=== PATIENT | male | born 1990 | race Caucasian/White ===

== ENCOUNTER 2017-01-23 04:16 | Inpatient (IN) | payer OTHER ==
[2017-01-23 04:32] VITALS: BMI 24.3
[2017-01-23] MEDS ORDERED: Sodium Chloride 0.9% 1,000 ML IV ONE ×3 (04:39→05:26)
[2017-01-23 04:46] LABS: BASO % 0.6 % (0.0-2.0); EOS # 0.3 K/uL (0.0-0.7); EOS % 5.4 % (0.0-4.0); LYMPH # 0.9 K/uL (1.0-4.3); LYMPH % 15.1 % (20.0-40.0); MEAN CELL VOLUME 84.8 fL (80.0-94.0); MEAN CORPUSCULAR HEMOGLOBIN 28.1 pg (27.0-31.0); MEAN CORPUSCULAR HGB CONC 33.2 g/dL (33.0-37.0); MEAN PLATELET VOLUME 11.8 fL (7.2-11.7); MONO # 0.7 K/uL (0.0-0.8); MONO % 10.7 % (0.0-10.0); RED CELL DISTRIBUTION WIDTH 24.9 % (11.5-14.5); WHITE BLOOD COUNT 6.1 K/uL (4.8-10.8)
[2017-01-23 04:50] LABS: INR 2.3
[2017-01-23] MEDS ORDERED: Sodium Chloride 0.9% 1,000 ML ONE (04:55)
[2017-01-23 04:57] LABS: CHLORIDE 97 mmol/L (98-107); SODIUM 127 mmol/L (132-148)
[2017-01-23 04:58] LABS: POTASSIUM 4.5 mmol/L (3.6-5.2)
[2017-01-23 04:59] LABS: GFR AFRICAN-AMERICAN > 60
[2017-01-23 05:00] LABS: ALB/GLOB RATIO 0.5 (1.0-2.1); ALKALINE PHOSPHATASE 180 U/L (38-126); ALT/SGPT 130 U/L (21-72); AST/SGOT 166 U/L (17-59); BILIRUBIN,TOTAL 9.5 mg/dL (0.2-1.3); BLOOD UREA NITROGEN 21 mg/dL (9-20); CALCIUM 6.8 mg/dl (8.6-10.4); CARBON DIOXIDE 22 mmol/L (22-30); GLUCOSE,RANDOM 97 mg/dL (75-110); TOTAL PROTEIN 5.3 g/dL (6.3-8.3)
[2017-01-23] MEDS ORDERED: Phytonadione 10 mg/ml Inj (Adult) IM STA (05:20)
--- NOTE | 2017-01-23 05:21 | C.PDOC ---
History Of Present Illness 26 year old male with a history of liver issues presents to the ED with complaints of vomiting blood beginning during the night. Patient is a candidate awaiting liver transplant. He denies fever, diarrhea, or other complaints at this time. Chief Complaint (Nursing): GI Problem History Per: Patient, Family History/Exam Limitations: no limitations Onset/Duration Of Symptoms: Hrs Current Symptoms Are (Timing): Still Present Associated Symptoms: Vomiting (vomiting blood ) Exacerbating Factors: None Alleviating Factors: None Recent travel outside of the [place]: No Past Medical History Reviewed: Historical Data, Nursing Documentation, Vital Signs Vital Signs: Last Vital Signs Temp 98.1 F 01/23/17 06:01 Pulse 93 H 01/23/17 06:01 Resp 16 01/23/17 06:01 BP 93/48 L 01/23/17 06:01 Pulse Ox 100 01/23/17 06:03 Family History: States: Unknown Family Hx - Social History Hx Alcohol Use: No Hx Substance Use: No Review Of Systems Constitutional: Negative for: Fever, Chills Gastrointestinal: Positive for: Nausea, Vomiting, Hematemesis. Negative for: Diarrhea Physical Exam - Physical Exam Appears: Non-toxic, In Acute Distress Skin: Warm, Dry, Jaundice Head: Atraumatic, Normacephalic Eye(s): bilateral: Conjunctiva Pale Oral Mucosa: Moist Neck: Supple Chest: Symmetrical, No Deformity Cardiovascular: No Murmur, Other (Patient is tachycardic ) Respiratory: Normal Breath Sounds, No Rales, No Rhonchi, No Wheezing Gastrointestinal/Abdominal: Soft, No Tenderness, No Distention, No Guarding, No Rebound, Other (Large liver palpable on exam ) Extremity: Normal ROM, No Tenderness Neurological/Psych: Oriented x3 ED Course And Treatment - Laboratory Results Result Diagrams: 01/23/17 04:42 01/23/17 04:42 ECG: Interpreted By Me, Viewed By Me ECG Rhythm: Sinus Rhythm ECG Interpretation: No Acute Changes, Abnormal Interpretation Of ECG: NSR, prolonged QT interval Rate From EC O2 Sat by Pulse Oximetry: 100 (room air ) Pulse Ox Interpretation: Normal - Radiology CXR: Interpreted by Me, Viewed By Me CXR Interpretation: Yes: No Acute Disease. No: Infiltrates, Cardiomegaly, Pnemothorax Progress Note: EKG, CXR, ad labs were ordered. Patient was given Vitamin K, Octreotide, and IV fluids. Medical Decision Making Medical Decision Making: NG tube was inserted by Dr. Barnhart, showing active bleeding. Patient vomited blood clot while in ER. Disposition Discussed With : Darek Morin Doctor Will See Patient In The: Hospital Counseled Patient/Family Regarding: Diagnosis - Disposition Disposition: HOSPITALIZED Disposition Time: 06:03 Condition: GUARDED - Clinical Impression Clinical Impression: Gastrointestinal hemorrhage, Esophageal varices, Hepatic dysfunction - Scribe Statement The provider has reviewed the documentation as recorded by the Scribdread Russell All medical record entries made by the Liliaibdread were at my direction and personally dictated by me. I have reviewed the chart and agree that the record accurately reflects my personal performance of the history, physical exam, medical decision making, and the department course for this patient. I have also personally directed, reviewed, and agree with the discharge instructions and disposition.
[2017-01-23] MEDS ORDERED: Phytonadione 10 mg/ml Inj (Adult) ONE (05:37)
--- NOTE | 2017-01-23 05:50 | CP.PCM.CON ---
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 Denied pain /fever/. sob/ cough. Pt is anemic and awaiting transfusion of PRBC in ED. ROS- as noted All- NKDA Social- no tob/ etoh/ drugs Meds-Reviewed FH- Unknown PE T-97.8 P-90 R-18 BP- 95/64 Skin-Jaundice Neck- no jvd Lungs- bilat bs Heart-rr aBd- bs+, soft, + spleenomegally, nontender Ext- nontender Neuro- nonfocal Labs-reviewed A&P UGI Bleed/ r/o varices Acute Blood Loss Anemia PSC Hyponatremia Admit to ICU f/u cbc post PRBC GI eval /EGD Octreotide /PPI Transfuse FFP / f/u PT,PTT maintain optimal lytes Past Patient History - Infectious Disease Hx of Infectious Diseases: None - Past Social History Smoking Status: Never Smoked - HEMATOLOGICAL/ONCOLOGICAL Hx Cirrhosis: Yes - GASTROINTESTINAL Other/Comment: primary sclerosing cholangitis - PSYCHIATRIC Hx Substance Use: No - SURGICAL HISTORY 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) Meds Allergies/Adverse Reactions: Allergies Allergy/AdvReac Type Severity Reaction Status Date / Time No Known Allergies Allergy Verified 01/23/17 04:34 - Medications Medications: Current Medications Octreotide Acetate 50 mcg/ (Sodium Chloride) 51 mls @ 102 mls/hr IVPB Q8 JULIA Sodium Chloride (Sodium Chloride 0.9%) 1,000 mls @ 1,000 mls/hr IV .Q1H ONE Stop: 01/23/17 06:07 Last Admin: 01/23/17 05:11 Dose: 1,000 mls/hr Sodium Chloride (Sodium Chloride 0.9%) 1,000 mls @ 1,000 mls/hr IV .Q1H ONE Stop: 01/23/17 06:25 Results - Vital Signs Recent Vital Signs: Last Vital Signs Temp 97.8 F 01/23/17 04:26 Pulse 105 H 01/23/17 04:46 Resp 14 01/23/17 04:46 BP 95/64 L 01/23/17 04:46 Pulse Ox 100 01/23/17 05:38 - Labs Result Diagrams: 01/23/17 04:42 01/23/17 04:42 Labs: Laboratory Results - last 24 hr 01/23/17 01/23/17 01/23/17 04:42 04:42 04:42 WBC 6.1 RBC 2.95 L Hgb 8.3 L Hct 25.0 L MCV 84.8 MCH 28.1 MCHC 33.2 RDW 24.9 H Plt Count 70 L MPV 11.8 H Neut % (Auto) 68.2 Lymph % (Auto) 15.1 L [place] % (Auto) 10.7 H Eos % (Auto) 5.4 H Baso % (Auto) 0.6 Neut # 4.1 Lymph # 0.9 L [place] # 0.7 Eos # 0.3 Baso # 0.0 PT 26.1 H INR 2.3 APTT 39 H Sodium 127 L Potassium 4.5 Chloride 97 L Carbon Dioxide 22 Anion Gap 13 BUN 21 H Creatinine 0.5 L Est GFR ( Amer) > 60 Est GFR (Non-Af Amer) > 60 Random Glucose 97 Calcium 6.8 L Total Bilirubin 9.5 H AST 166 H ALT 130 H Alkaline Phosphatase 180 H Ammonia Total Protein 5.3 L Albumin 1.7 L Globulin 3.6 Albumin/Globulin Ratio 0.5 L Lipase 53 Blood Type Antibody Screen 01/23/17 01/23/17 04:45 04:59 WBC RBC Hgb Hct MCV MCH MCHC RDW Plt Count MPV Neut % (Auto) Lymph % (Auto) [place] % (Auto) Eos % (Auto) Baso % (Auto) Neut # Lymph # [place] # Eos # Baso # PT INR APTT Sodium Potassium Chloride Carbon Dioxide Anion Gap BUN Creatinine Est GFR ( Amer) Est GFR (Non-Af Amer) Random Glucose Calcium Total Bilirubin AST ALT Alkaline Phosphatase Ammonia 64 H Total Protein Albumin Globulin Albumin/Globulin Ratio Lipase Blood Type O POSITIVE Antibody Screen Negative
[2017-01-23] MEDS ORDERED: Pantoprazole 80 MG in Sodium Chloride 0.9% 100 ML IVP SCH (06:30)
--- NOTE | 2017-01-23 06:35 | CP.PCM.CON ---
<Estuardo Maldonado - Last Filed: 01/23/17 08:56> History of Present Illness - History of Present Illness History of Present Illness: PGY4 Initial GI Consult Anastacio Huang is a 26M w/ hx of PSC and on the Liver transplant List at [facility] who presented to ER with complaints of hematemesis. Pt states that he awoke from sleep with nausea. He proceeded to have x1 episode of hematemesis. He decribed the emesis being mixed with bright red blood and clots. Pt states states that he then proceeded to the ER for further eval. He denies any abd pain. Pt states that this is his first episode of hematemsis. Her denies any BRBPR or melena. Denies any previous episodes of gastritis or ulcers. He states that he was diagnosed with PSC a few years ago and was originally being followed at [facility] but transferred care to [facility]. He states that he has had an EGD 2-3 years prior and cannot recall if he had any varicies. He notes that around the same time, he also had a Biliary stent placed at the time. Upon arrival in the ER, he had an NG tube placed with suction. In total, he had around 125cc outpt since admission. Pt remained hemodynamically stable in the ER. He received a bolus of octreotide and 1 unit of PRBC. He has been evaluated for for the ICU. PMHx: PSC PSHx: Biliary stent placement Family Hx: Denies any colon ca Endoscopy hx: EGD and ERCP 2-3 years ago at [facility]? 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) Meds Allergies/Adverse Reactions: Allergies Allergy/AdvReac Type Severity Reaction Status Date / Time No Known Allergies Allergy Verified 01/23/17 04:34 - Medications Medications: Current Medications Pantoprazole Sodium 80 mg/ (Sodium Chloride) 100 mls @ 10 mls/hr IVP .Q10H JULIA PRN Reason: 8 MG/HR Physical Exam - Constitutional Appears: Well, No Acute Distress, Agitated - Head Exam Head Exam: ATRAUMATIC, NORMOCEPHALIC - Eye Exam Eye Exam: Scleral icterus - ENT Exam ENT Exam: Mucous Membranes Moist, Normal Exam - Respiratory Exam Respiratory Exam: Clear to Auscultation Bilateral, NORMAL BREATHING PATTERN. absent: Rales, Rhonchi, Wheezes, Respiratory Distress - Cardiovascular Exam Cardiovascular Exam: REGULAR RHYTHM, +S1, +S2 - GI/Abdominal Exam GI & Abdominal Exam: Normal Bowel Sounds, Soft. absent: Firm, Guarding, Hernia , Rebound, Rigid, Tenderness - Neurological Exam Neurological exam: Alert, Oriented x3 - Psychiatric Exam Psychiatric exam: Normal Affect, Normal Mood - Skin Skin Exam: Dry, Intact, Warm Additional comments: juandiced Results - Vital Signs Recent Vital Signs: Last Vital Signs Temp 98.1 F 01/23/17 06:01 Pulse 93 H 01/23/17 06:01 Resp 16 01/23/17 06:01 BP 93/48 L 01/23/17 06:01 Pulse Ox 100 01/23/17 06:12 - Labs Result Diagrams: 01/23/17 04:42 01/23/17 04:42 Labs: Laboratory Results - last 24 hr 01/23/17 01/23/17 01/23/17 04:42 04:42 04:42 WBC 6.1 RBC 2.95 L Hgb 8.3 L Hct 25.0 L MCV 84.8 MCH 28.1 MCHC 33.2 RDW 24.9 H Plt Count 70 L MPV 11.8 H Neut % (Auto) 68.2 Lymph % (Auto) 15.1 L [place] % (Auto) 10.7 H Eos % (Auto) 5.4 H Baso % (Auto) 0.6 Neut # 4.1 Lymph # 0.9 L [place] # 0.7 Eos # 0.3 Baso # 0.0 Differential Comment PT 26.1 H INR 2.3 APTT 39 H Sodium 127 L Potassium 4.5 Chloride 97 L Carbon Dioxide 22 Anion Gap 13 BUN 21 H Creatinine 0.5 L Est GFR ( Amer) > 60 Est GFR (Non-Af Amer) > 60 Random Glucose 97 Calcium 6.8 L Total Bilirubin 9.5 H AST 166 H ALT 130 H Alkaline Phosphatase 180 H Ammonia Total Protein 5.3 L Albumin 1.7 L Globulin 3.6 Albumin/Globulin Ratio 0.5 L Lipase 53 Blood Type Antibody Screen 01/23/17 01/23/17 04:45 04:59 WBC RBC Hgb Hct MCV MCH MCHC RDW Plt Count MPV Neut % (Auto) Lymph % (Auto) [place] % (Auto) Eos % (Auto) Baso % (Auto) Neut # Lymph # [place] # Eos # Baso # Differential Comment PT INR APTT Sodium Potassium Chloride Carbon Dioxide Anion Gap BUN Creatinine Est GFR ( Amer) Est GFR (Non-Af Amer) Random Glucose Calcium Total Bilirubin AST ALT Alkaline Phosphatase Ammonia 64 H Total Protein Albumin Globulin Albumin/Globulin Ratio Lipase Blood Type O POSITIVE Antibody Screen Negative Assessment & Plan - Assessment and Plan (Free Text) Assessment: Anastacio Huang is a 26M w/ hx of PSC who presents with upper GI bleed. DDx: Variceal, PUD, AVM 1. Upper GI bleed 2. hx of PSC 3. End stage liver disease, on transplant list at [facility] 4. Juandiced Plan: -admit to ICU -pt is stable, minimal outpt from NG tube, remains 125cc -s/p 1 unit PRBC -will order FFP x1 -s/p octeotide bolus, will start drip an 50mcg -recommend IV protonix 80mg bolus with drip -contents in chart -attempting to call [facility], waiting for call back -Will give GI abx proph of IV ceftriaxone -maintain hgb > 7 -maintaine 2 lareg bore IVs -NOK is his pt's mother who is bedside D/W Dr. Flores - <Zhou Flores Y - Last Filed: 01/23/17 09:40> Meds - Medications Medications: Current Medications Octreotide Acetate 1,250 mcg/ (Dextrose) 250 mls @ 10 mls/hr IV .Q24H JULIA; 50 MCG/HR PRN Reason: Protocol Pantoprazole Sodium 80 mg/ (Sodium Chloride) 100 mls @ 10 mls/hr IV .Q10H JULIA PRN Reason: 8 MG/HR Ceftriaxone Sodium 1 gm/ (Dextrose) 100 mls @ 200 mls/hr IVPB DAILY JULIA Stop: 01/25/17 10:29 Propranolol HCl (Inderal) 10 mg PO TID JULIA Results - Vital Signs Recent Vital Signs: Last Vital Signs Temp 97.8 F 01/23/17 08:12 Pulse 91 H 01/23/17 08:12 Resp 18 01/23/17 08:12 BP 88/46 L 01/23/17 08:12 Pulse Ox 100 01/23/17 08:12 - Labs Result Diagrams: 01/23/17 04:42 01/23/17 04:42 Labs: Laboratory Results - last 24 hr 01/23/17 01/23/17 01/23/17 04:42 04:42 04:42 WBC 6.1 RBC 2.95 L Hgb 8.3 L Hct 25.0 L MCV 84.8 MCH 28.1 MCHC 33.2 RDW 24.9 H Plt Count 70 L MPV 11.8 H Neut % (Auto) 68.2 Lymph % (Auto) 15.1 L [place] % (Auto) 10.7 H Eos % (Auto) 5.4 H Baso % (Auto) 0.6 Neut # 4.1 Lymph # 0.9 L [place] # 0.7 Eos # 0.3 Baso # 0.0 Differential Comment PT 26.1 H INR 2.3 APTT 39 H Sodium 127 L Potassium 4.5 Chloride 97 L Carbon Dioxide 22 Anion Gap 13 BUN 21 H Creatinine 0.5 L Est GFR ( Amer) > 60 Est GFR (Non-Af Amer) > 60 Random Glucose 97 Calcium 6.8 L Total Bilirubin 9.5 H AST 166 H ALT 130 H Alkaline Phosphatase 180 H Ammonia Total Protein 5.3 L Albumin 1.7 L Globulin 3.6 Albumin/Globulin Ratio 0.5 L Lipase 53 Blood Type Antibody Screen 01/23/17 01/23/17 04:45 04:59 WBC RBC Hgb Hct MCV MCH MCHC RDW Plt Count MPV Neut % (Auto) Lymph % (Auto) [place] % (Auto) Eos % (Auto) Baso % (Auto) Neut # Lymph # [place] # Eos # Baso # Differential Comment PT INR APTT Sodium Potassium Chloride Carbon Dioxide Anion Gap BUN Creatinine Est GFR ( Amer) Est GFR (Non-Af Amer) Random Glucose Calcium Total Bilirubin AST ALT Alkaline Phosphatase Ammonia 64 H Total Protein Albumin Globulin Albumin/Globulin Ratio Lipase Blood Type O POSITIVE Antibody Screen Negative Attending/Attestation - Attestation I have personally seen and examined this patient.: Yes I have fully participated in the care of the patient.: Yes I have reviewed all pertinent clinical information: Yes Notes (Text): 01/23/17 09:34 I have seen and examined patient with GI fellow. Agree with above documentation with the following additions. In brief, this is a 26 year old male with history of PSC, followed at [facility] and actively listed for liver transplant who presents to hospital with complaint of sudden onset hematemesis which awoke him from sleep yesterday. Prior to this he was in usual state of health. His symptoms were associated with nausea and he denies additional recent episodes of similar emesis. He denies abdominal pain, fever/ chills, weight loss, rectal bleeding, melena, or similar prior episodes. He does note progressive jaundice recently. He had an EGD 2-3 years ago which was apparently normal as per patient. Additional physical examination: Abdomen: no palpable hepato/splenomegaly PSC Decompensated cirrhosis, admission MELD 29 Coagulopathy Hematemesis, acute severe posing threat to patient life - NPO - Suggest IV PPI and octreotide infusion therapy - Transfuse FFP x 2 given elevated INR - Administer empiric antibiotic therapy given suspected upper GI bleed in patient with cirrhosis - Continue to monitor H/H - Plan for emergent EGD today for control of suspected variceal bleeding - Obtain abdominal US with doppler to rule out PV thrombosis - Will discuss with [facility] liver transplant service regarding potential transfer of patient to their service for ongoing care
[2017-01-23] MEDS ORDERED: Propofol 10 mg/ml Inj (20 ML) ONE ×2 (07:28→08:39)
[2017-01-23] MEDS ORDERED: Ethanolamine Oleate 50 mg/ml (2ml) Amp IV ONE (07:53)
--- NOTE | 2017-01-23 08:30 | RAD ---
HISTORY: Evaluate for infiltrate. COMPARISON: No prior. FINDINGS: LUNGS: No active pulmonary disease. NG tube extending into the stomach. Distal tip not well visualized. PLEURA: No significant pleural effusion identified, no pneumothorax apparent. CARDIOVASCULAR: Normal. OSSEOUS STRUCTURES: No significant abnormalities. VISUALIZED UPPER ABDOMEN: Normal. OTHER FINDINGS: None. IMPRESSION: No active pulmonary disease. NG tube extending into the stomach. Distal tip not well visualized.
[2017-01-23] MEDS ORDERED: cefTRIAXone 2 GM in Sodium Chloride 0.9% 100 ML IVPB SCH (10:00)
[2017-01-23] MEDS: DEXTROSE 5% IV SCH (10:30)
[2017-01-23] MEDS: WATER IV SCH (10:30)
[2017-01-23] MEDS: OCTREOTIDE IV SCH (10:30)
[2017-01-23 11:13] LABS: EOS # 0.1 K/uL (0.0-0.7); HEMATOCRIT 23.3 % (35.0-51.0); LYMPH # 0.6 K/uL (1.0-4.3); MONO # 0.4 K/uL (0.0-0.8)
[2017-01-23 11:19] LABS: BASO % 0.6 % (0.0-2.0); EOS % 3.1 % (0.0-4.0); LYMPH % 13.2 % (20.0-40.0); MEAN CELL VOLUME 84.7 fL (80.0-94.0); MEAN CORPUSCULAR HEMOGLOBIN 28.3 pg (27.0-31.0); MEAN CORPUSCULAR HGB CONC 33.4 g/dL (33.0-37.0); MEAN PLATELET VOLUME 12.9 fL (7.2-11.7); MONO % 8.3 % (0.0-10.0); NRBC % 0.3 % (0.0-2.0); RED CELL DISTRIBUTION WIDTH 23.1 % (11.5-14.5); WHITE BLOOD COUNT 4.4 K/uL (4.8-10.8)
--- NOTE | 2017-01-23 14:50 | US ---
HISTORY: r/o portal vein thrombosis COMPARISON: None available. TECHNIQUE: Sonographic evaluation of the abdomen. FINDINGS: LIVER: Measures 13.6 cm in sagittal dimension. Echogenic liver may be seen in setting of hepatic parenchymal disease or fatty infiltration. Nodular hepatic contour. No focal hepatic mass identified. The main portal vein appears patent with normal directional flow. No intrahepatic bile duct dilatation. GALLBLADDER: No gallstones. Gallbladder wall thickening/ edema measuring approximately 1 cm in diameter. Negative sonographic Jeffries's sign as assessed by the tube balancer. COMMON BILE DUCT: Measures 4 mm. PANCREAS: Not well visualized. RIGHT KIDNEY: Measures 11.4 x 4.9 x 6.2cm. No obstructing calculus or hydronephrosis identified. LEFT KIDNEY: Measures 12.9 x 4.9 x 4.9cm. No obstructing calculus or hydronephrosis identified. SPLEEN: Measures approximately 28.2 cm in maximum diameter. AORTA: Limited views appear unremarkable. IVC: Limited views appear unremarkable. OTHER FINDINGS: Small abdominal ascites. Ascites is also noted within the right lower quadrant. IMPRESSION: Echogenic liver may be seen in setting of hepatic parenchymal disease or fatty infiltration. Nodular hepatic contour consistent with cirrhosis. The main portal vein appears patent with normal directional flow. If further evaluation is indicated, liver Doppler ultrasound may be considered. Marked splenomegaly. Gallbladder wall thickening/edema. No evidence of cholelithiasis. Negative sonographic Jeffries's sign as assessed by the tube balancer. Small abdominal ascites. Ascites is also noted within the right lower quadrant.
[2017-01-23] MEDS: Pantoprazole 80 MG in Sodium Chloride 0.9% 100 ML IV SCH ×2 (15:26→22:40)
--- NOTE | 2017-01-24 00:48 | HP ---
HISTORY OF PRESENT ILLNESS: The patient is a 26-year-old male, admitted to the hospital complaining of lower GI bleeding, congested liver disease. Liver transplant candidate. The patient has congested liver cirrhosis. PHYSICAL EXAMINATION: GENERAL: The patient is awake, alert, oriented and pleasant young man. VITAL SIGNS: Temperature 98, pulse 93. HEENT: Within normal limits. NECK: Supple. CHEST: Symmetrical. HEART: Regular. ABDOMEN: Soft. EXTREMITIES: No edema. IMPRESSION: Gastrointestinal bleeding, liver failure and did get endoscopy initially, evaluated for transfer to . Darek Morin MD
[2017-01-24] MEDS: Pantoprazole 80 MG in Sodium Chloride 0.9% 100 ML IV SCH ×3 (03:00→13:00)
[2017-01-24 06:19] LABS: BASO % 0.9 % (0.0-2.0); EOS # 0.2 K/uL (0.0-0.7); EOS % 6.5 % (0.0-4.0); HEMATOCRIT 21.7 % (35.0-51.0); LYMPH # 0.9 K/uL (1.0-4.3); LYMPH % 24.5 % (20.0-40.0); MEAN CELL VOLUME 86.4 fL (80.0-94.0); MEAN CORPUSCULAR HEMOGLOBIN 28.8 pg (27.0-31.0); MEAN CORPUSCULAR HGB CONC 33.3 g/dL (33.0-37.0); MEAN PLATELET VOLUME 12.4 fL (7.2-11.7); MONO # 0.4 K/uL (0.0-0.8); MONO % 9.8 % (0.0-10.0); NRBC % 0.1 % (0.0-2.0); PLATELET COUNT 60 K/uL (130-400); RED CELL DISTRIBUTION WIDTH 23.5 % (11.5-14.5); WHITE BLOOD COUNT 3.6 K/uL (4.8-10.8)
[2017-01-24 06:32] LABS: CHLORIDE 103 mmol/L (98-107)
[2017-01-24 06:33] LABS: POTASSIUM 3.9 mmol/L (3.6-5.2); SODIUM 132 mmol/L (132-148)
[2017-01-24 06:34] LABS: BILIRUBIN,TOTAL 9.3 mg/dL (0.2-1.3); CARBON DIOXIDE 20 mmol/L (22-30); GFR AFRICAN-AMERICAN > 60
[2017-01-24 06:35] LABS: ALB/GLOB RATIO 0.5 (1.0-2.1); ALKALINE PHOSPHATASE 157 U/L (38-126); ALT/SGPT 135 U/L (21-72); AST/SGOT 182 U/L (17-59); BLOOD UREA NITROGEN 23 mg/dL (9-20); GLUCOSE,RANDOM 73 mg/dL (75-110); MAGNESIUM 1.6 mg/dL (1.6-2.3); PHOSPHOROUS 4.1 mg/dL (2.5-4.5); TOTAL PROTEIN 5.5 g/dL (6.3-8.3)
[2017-01-24] MEDS: OCTREOTIDE IV SCH (09:13)
[2017-01-24] MEDS: DEXTROSE 5% IV SCH (09:13)
[2017-01-24] MEDS: WATER IV SCH (09:13)
[2017-01-24] MEDS: cefTRIAXone IV 1 gm in Dextros 1 GM in Dextrose 5% In Water 50 ML IVPB SCH (09:18)
--- NOTE | 2017-01-24 09:31 | CP.PCM.PN ---
<Ziyad Lennon - Last Filed: 01/24/17 13:00> Subjective - Date & Time of Evaluation Date of Evaluation: 01/24/17 Time of Evaluation: 06:45 - Subjective Subjective: PGY5 GI Fellow Progress Note Patient seen and examined bedside this morning. The patient states that he had some nausea overnight but no episodes of vomiting or hematemesis. Denies retching. No dizziness, lightheadedness, fever, chills, abdominal/chest pain. Pt is hungry. 12 system ROS performed and negative except where stated. Objective - Vital Signs/Intake and Output Vital Signs (last 24 hours): Temp Pulse Resp BP Pulse Ox 97.2 F L 71 16 96/62 L 100 01/24/17 08:01 01/24/17 08:00 01/24/17 04:05 01/24/17 04:05 01/24/17 04:05 Intake and Output: 01/24/17 01/24/17 06:59 18:59 Intake Total 160 Output Total 500 Balance -340 - Medications Medications: Current Medications Octreotide Acetate 1,250 mcg/ (Dextrose) 250 mls @ 10 mls/hr IV .Q24H JULIA; 50 MCG/HR PRN Reason: Protocol Last Admin: 01/24/17 09:13 Dose: 10 mls/hr Pantoprazole Sodium 80 mg/ (Sodium Chloride) 100 mls @ 10 mls/hr IV .Q10H JULIA PRN Reason: 8 MG/HR Last Admin: 01/24/17 09:17 Dose: 10 mls/hr Ceftriaxone Sodium 1 gm/ (Dextrose) 100 mls @ 200 mls/hr IVPB DAILY JULIA Stop: 01/25/17 10:29 Last Admin: 01/24/17 09:18 Dose: 200 mls/hr Ondansetron HCl (Zofran Inj) 4 mg IVP Q8H PRN Last Admin: 01/24/17 09:12 Dose: 4 mg Propranolol HCl (Inderal) 10 mg PO TID JULIA - Labs Labs: 01/24/17 06:08 01/24/17 06:08 PT 26.1 SECONDS (9.7-12.2) H 01/23/17 04:42 INR 2.3 01/23/17 04:42 APTT 39 SECONDS (21-34) H 01/23/17 04:42 - Constitutional Appears: No Acute Distress, Chronically Ill - Eye Exam Eye Exam: EOMI, PERRL - ENT Exam ENT Exam: Mucous Membranes Dry - Respiratory Exam Respiratory Exam: Clear to Ausculation Bilateral. absent: Rales, Rhonchi, Wheezes - Cardiovascular Exam Cardiovascular Exam: RRR, +S1, +S2 - GI/Abdominal Exam GI & Abdominal Exam: Soft, Normal Bowel Sounds. absent: Distended, Firm, Guarding, Rigid, Tenderness, Organomegaly - Extremities Exam Extremities Exam: Normal Inspection. 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, currently listed for transplant at [facility] in [place] -Primary sclerosing cholangitis -Hyperbilirubinemia 2/2 above Plan: -S/P EGD with esophageal variceal band ligation (5 bands placed) yesterday -OK to advance to liquids today -Continue Octreotide gtt for total of 5 days, Protonix gtt for 72H -Cannot restart Lasix/Aldactone in light of hyponatremia and recent GI bleeding ; slight ascites on U/S -Resume Ursodiol 300mg PO TID -Avoid over-transfusion with goal HGB 7-8 as this can precipitate variceal bleeding -Continue Ceftriaxone 1g IV QD for SBP prophylaxis -Patient accepted for transfer to [facility], transfer pending bed availability <Edmundo Reddy - Last Filed: 01/24/17 15:13> Objective - Vital Signs/Intake and Output Vital Signs (last 24 hours): Temp Pulse Resp BP Pulse Ox 97.6 F 70 19 99/57 L 100 01/24/17 12:00 01/24/17 12:00 01/24/17 12:00 01/24/17 08:05 01/24/17 12:00 Intake and Output: 01/24/17 01/24/17 06:59 18:59 Intake Total 160 20 Output Total 500 0 Balance -340 20 - Medications Medications: Current Medications Octreotide Acetate 1,250 mcg/ (Dextrose) 250 mls @ 10 mls/hr IV .Q24H JULIA; 50 MCG/HR PRN Reason: Protocol Last Admin: 01/24/17 09:13 Dose: 10 mls/hr Pantoprazole Sodium 80 mg/ (Sodium Chloride) 100 mls @ 10 mls/hr IV .Q10H JULIA PRN Reason: 8 MG/HR Last Admin: 01/24/17 09:17 Dose: 10 mls/hr Ceftriaxone Sodium 1 gm/ (Dextrose) 100 mls @ 200 mls/hr IVPB DAILY JULIA Stop: 01/25/17 10:29 Last Admin: 01/24/17 09:18 Dose: 200 mls/hr Ondansetron HCl (Zofran Inj) 4 mg IVP Q8H PRN Last Admin: 01/24/17 09:12 Dose: 4 mg Ursodiol (Actigall) 300 mg PO TID JULIA Last Admin: 01/24/17 10:27 Dose: 300 mg - Labs Labs: 01/24/17 06:08 01/24/17 06:08 PT 26.1 SECONDS (9.7-12.2) H 01/23/17 04:42 INR 2.3 01/23/17 04:42 APTT 39 SECONDS (21-34) H 01/23/17 04:42 Attending/Attestation - Attestation I have personally seen and examined this patient.: Yes I have fully participated in the care of the patient.: Yes I have reviewed all pertinent clinical information, including history, physical exam and plan: Yes Notes (Text): 01/24/17 15:11 26 year old male with h/o PSC, Cirrhosis admitted with variceal bleeding now s/ p EGD with banding. 1. Esophageal varices 2. PSC 3. Cirrhosis Plan: -continue IV octreotide -continue PPI -continue ceftriaxone -await transfer to [place] -continue supportive measures in the meantime -continue urdodiol -s/p egd with banding
[2017-01-24 10:15] LABS: EOSINOPHIL 7 % (0-4); NEUTROPHIL 67 % (50-75); TOTAL CELLS COUNTED 100
[2017-01-25] MEDS: Pantoprazole 80 MG in Sodium Chloride 0.9% 100 ML IV SCH ×2 (06:43→09:14)
[2017-01-25] MEDS: OCTREOTIDE IV SCH (07:40)
[2017-01-25] MEDS: WATER IV SCH (07:40)
[2017-01-25] MEDS: DEXTROSE 5% IV SCH (07:40)
--- NOTE | 2017-01-25 07:40 | CP.PCM.PN ---
<Ziyad Lennon - Last Filed: 01/25/17 09:03> Subjective - Date & Time of Evaluation Date of Evaluation: 01/25/17 Time of Evaluation: 07:38 - Subjective Subjective: PGY5 GI Fellow Progress Note Patient seen and examined bedside this morning. The patient states that he is feeling well and has no complaints at this time. He is very eager to eat. Denies any melena, hematochezia, dizziness, lightheadedness. No nausea, vomiting overnight. 12 system ROS performed and negative except where stated. Objective - Vital Signs/Intake and Output Vital Signs (last 24 hours): Temp Pulse Resp BP Pulse Ox 98.2 F 73 20 94/58 L 100 01/24/17 23:14 01/25/17 03:49 01/24/17 23:14 01/24/17 23:14 01/24/17 23:14 - Medications Medications: Current Medications Octreotide Acetate 1,250 mcg/ (Dextrose) 250 mls @ 10 mls/hr IV .Q24H JULIA; 50 MCG/HR PRN Reason: Protocol Last Admin: 01/24/17 09:13 Dose: 10 mls/hr Pantoprazole Sodium 80 mg/ (Sodium Chloride) 100 mls @ 10 mls/hr IV .Q10H JULIA PRN Reason: 8 MG/HR Last Admin: 01/25/17 06:43 Dose: 10 mls/hr Ceftriaxone Sodium 1 gm/ (Dextrose) 100 mls @ 200 mls/hr IVPB DAILY JULIA Stop: 01/25/17 10:29 Last Admin: 01/24/17 09:18 Dose: 200 mls/hr Ondansetron HCl (Zofran Inj) 4 mg IVP Q8H PRN Last Admin: 01/24/17 22:42 Dose: 4 mg Ursodiol (Actigall) 300 mg PO TID JULIA Last Admin: 01/24/17 18:40 Dose: 300 mg - Labs Labs: 01/24/17 06:08 01/24/17 06:08 PT 26.1 SECONDS (9.7-12.2) H 01/23/17 04:42 INR 2.3 01/23/17 04:42 APTT 39 SECONDS (21-34) H 01/23/17 04:42 - Constitutional Appears: Non-toxic, No Acute Distress - Eye Exam Eye Exam: EOMI, PERRL - ENT Exam ENT Exam: Mucous Membranes Moist - Respiratory Exam Respiratory Exam: Clear to Ausculation Bilateral. absent: Rales, Rhonchi, Wheezes - Cardiovascular Exam Cardiovascular Exam: RRR, +S1, +S2 - GI/Abdominal Exam GI & Abdominal Exam: Distended, Soft, Normal Bowel Sounds. absent: Firm, Guarding, Rigid, Tenderness, Organomegaly - Extremities Exam Extremities Exam: Normal Inspection. 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, currently listed for transplant at [facility] in [place] -Primary sclerosing cholangitis -Hyperbilirubinemia 2/2 above Plan: -S/P EGD with esophageal variceal band ligation (5 bands placed) -OK to advance to full liquid diet today -Continue Octreotide gtt for total of 5 days, Protonix gtt for 72H -Cannot restart Lasix/Aldactone in light of hyponatremia and recent GI bleeding ; slight ascites on U/S -Ursodiol 300mg PO TID -Avoid over-transfusion with goal HGB 7-8 as this can precipitate variceal bleeding, awaiting AM CBC -Check CMP and INR today -Continue Ceftriaxone 1g IV QD for SBP prophylaxis x 3 doses total -Patient accepted for transfer to [facility], transfer pending bed availability <Zhou Flores - Last Filed: 01/25/17 18:05> Objective - Vital Signs/Intake and Output Vital Signs (last 24 hours): Temp Pulse Resp BP Pulse Ox 98 F 77 17 104/50 L 99 01/25/17 07:15 01/25/17 07:20 01/25/17 07:15 01/25/17 07:15 01/25/17 07:15 - Labs Labs: 01/25/17 11:28 01/25/17 11:28 PT 18.6 SECONDS (9.7-12.2) H D 01/25/17 11:28 INR 1.6 D 01/25/17 11:28 APTT 39 SECONDS (21-34) H 01/23/17 04:42 Attending/Attestation - Attestation I have personally seen and examined this patient.: Yes I have fully participated in the care of the patient.: Yes I have reviewed all pertinent clinical information, including history, physical exam and plan: Yes Notes (Text): 01/25/17 18:03 I have seen and examined patient with GI fellow. No acute events overnight. He denies abdominal pain, nausea, vomiting, fever/chills. Tolerating PO liquids without difficulty. Decompensated cirrhosis, secondary to PSC Hematemesis s/p EGD with variceal band ligation - Continue with PPI therapy - Full liquid diet as tolerated, anti-emetic therapy PRN - H/H stable, continue to monitor - Continue with octreotide for additional 24 hours - Continue with B-joaquín prophylaxis therapy - LFTs stable, continue to monitor - Patient accepted for transfer to [facility] liver service for ongoing care and transplant evaluation, awaiting bed availability
[2017-01-25 07:56] VITALS: BP 104/50; RESP 17; TEMP 98; O2SAT 99
--- NOTE | 2017-01-25 09:49 | CP.PCM.PN ---
Subjective - Date & Time of Evaluation Date of Evaluation: 01/25/17 Time of Evaluation: 09:50 - Subjective Subjective: Pt seen and examined at bedside; no reported blood loss per patient from rectum or vomiting; denies SOB, chest pain. no fevers/chills, VALDEZ, CP, SOB, abdominal pain, N/V/D, dysuria/freq/urg or lower extremity pain/swelling. Patient is for transfer to [facility] once bed becomes available. Objective - Vital Signs/Intake and Output Vital Signs (last 24 hours): Temp Pulse Resp BP Pulse Ox 98 F 73 17 104/50 L 99 01/25/17 07:15 01/25/17 07:15 01/25/17 07:15 01/25/17 07:15 01/25/17 07:15 - Medications Medications: Current Medications Octreotide Acetate 1,250 mcg/ (Dextrose) 250 mls @ 10 mls/hr IV .Q24H JULIA; 50 MCG/HR PRN Reason: Protocol Last Admin: 01/25/17 07:40 Dose: 10 mls/hr Pantoprazole Sodium 80 mg/ (Sodium Chloride) 100 mls @ 10 mls/hr IV .Q10H JULIA PRN Reason: 8 MG/HR Last Admin: 01/25/17 06:43 Dose: 10 mls/hr Ceftriaxone Sodium 1 gm/ (Dextrose) 100 mls @ 200 mls/hr IVPB DAILY JULIA Stop: 01/25/17 10:29 Last Admin: 01/24/17 09:18 Dose: 200 mls/hr Ondansetron HCl (Zofran Inj) 4 mg IVP Q8H PRN Last Admin: 01/24/17 22:42 Dose: 4 mg Ursodiol (Actigall) 300 mg PO TID JULIA Last Admin: 01/24/17 18:40 Dose: 300 mg - Labs Labs: 01/24/17 06:08 01/24/17 06:08 PT 26.1 SECONDS (9.7-12.2) H 01/23/17 04:42 INR 2.3 01/23/17 04:42 APTT 39 SECONDS (21-34) H 01/23/17 04:42 - Constitutional Appears: Non-toxic (patient is jaundiced ) - Head Exam Head Exam: ATRAUMATIC - Eye Exam Eye Exam: EOMI Pupil Exam: PERRL - ENT Exam ENT Exam: Mucous Membranes Moist Additional comments: jaundiced sclera - Respiratory Exam Respiratory Exam: Clear to Ausculation Bilateral, NORMAL BREATHING PATTERN. absent: Rales, Rhonchi, Wheezes - Cardiovascular Exam Cardiovascular Exam: REGULAR RHYTHM, +S1 - GI/Abdominal Exam GI & Abdominal Exam: Soft, Normal Bowel Sounds - Rectal Exam Rectal Exam: Deferred - Extremities Exam Extremities Exam: Full ROM - Back Exam Back Exam: NORMAL INSPECTION. 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, currently listed for transplant at [facility] in [place] -S/P EGD with esophageal variceal band ligation (5 bands placed) yesterday -as per GI can advance to liquids -as per GI the patient will need octreotide for a total of 5 days and protonix for 3 days -c/w Ursodiol 300mg PO TID -Cannot restart Lasix/Aldactone in light of hyponatremia and recent GI bleeding ; slight ascites on U/S -Continue Ceftriaxone 1g IV QD for SBP prophylaxis Primary sclerosing cholangitis -Hyperbilirubinemia 2/2 above -stable Proph -c/w GI prophylaxis as above -SCD's and do not give blood thinners 2/2 to acute blood loss Patient accepted for transfer to [facility], transfer pending bed availability; patient was accepted for transfer today 01/[address] Mayank Vega PGY2 Note for Dr. Morin
[2017-01-25] MEDS: cefTRIAXone IV 1 gm in Dextros 1 GM in Dextrose 5% In Water 50 ML IVPB SCH (10:13)
[2017-01-25 11:41] LABS: INR 1.6
[2017-01-25 11:44] LABS: EOS # 0.2 K/uL (0.0-0.7); LYMPH # 0.7 K/uL (1.0-4.3); LYMPH % 18.7 % (20.0-40.0); MONO # 0.4 K/uL (0.0-0.8); NRBC % 0.2 % (0.0-2.0); WHITE BLOOD COUNT 3.5 K/uL (4.8-10.8)
[2017-01-25 11:49] LABS: BASO % 0.5 % (0.0-2.0); EOS % 5.3 % (0.0-4.0); HEMATOCRIT 21.9 % (35.0-51.0); MEAN CELL VOLUME 86.6 fL (80.0-94.0); MEAN CORPUSCULAR HGB CONC 33.5 g/dL (33.0-37.0); MEAN PLATELET VOLUME 12.2 fL (7.2-11.7); MONO % 10.7 % (0.0-10.0); RED CELL DISTRIBUTION WIDTH 23.1 % (11.5-14.5)
[2017-01-25 12:06] LABS: CHLORIDE 101 mmol/L (98-107); POTASSIUM 3.5 mmol/L (3.6-5.2); SODIUM 131 mmol/L (132-148)
[2017-01-25 12:09] LABS: ALB/GLOB RATIO 0.5 (1.0-2.1); ALKALINE PHOSPHATASE 145 U/L (38-126); ALT/SGPT 138 U/L (21-72); AST/SGOT 191 U/L (17-59); BILIRUBIN,TOTAL 10.4 mg/dL (0.2-1.3); BLOOD UREA NITROGEN 16 mg/dL (9-20); CARBON DIOXIDE 20 mmol/L (22-30); GFR AFRICAN-AMERICAN > 60; GLUCOSE,RANDOM 102 mg/dL (75-110); TOTAL PROTEIN 5.6 g/dL (6.3-8.3)
[2017-01-25 12:10] LABS: CALCIUM 6.9 mg/dl (8.6-10.4)
[2017-01-25 15:27] VITALS: PULSE 77
--- NOTE | 2017-01-26 19:45 | CARD ---
APPROVED REPORT EKG Measurement Heart [id number] <Conclusion> Normal sinus rhythm Prolonged QT Abnormal ECG
== END 2017-01-25 12:58 | disposition short-term general hospital (02) | DRG 441 ==
LOC: C.ER 04:16 → C.9I 05:25 → C.6T 01-24 19:00
PROVIDERS: ADMIT Internal Medicine Pulmonary Disease; ATTEND Internal Medicine Pulmonary Disease
PROC: 06L34CZ Occlusion of Esophageal Vein with Extraluminal Device, Percutaneous Endoscopic Approach (ICD-10-PCS; principal; 2017-01-23 08:15)
DX: K76.1 Chronic passive congestion of liver (principal); I85.11 Secondary esophageal varices with bleeding; K83.0 Cholangitis; D68.4 Acquired coagulation factor deficiency; Z76.82 Awaiting organ transplant status; E87.1 Hypo-osmolality and hyponatremia; D62 Acute posthemorrhagic anemia